=== PATIENT | female | born 1945 | race Caucasian/White ===

== ENCOUNTER 2016-09-03 19:47 | Observation (INO) | payer OTHER, BC ==
[~2016-09-03] VITALS: Ht 165.1 cm; Wt 72.0 kg
[2016-09-03 21:09] LABS: HEMATOCRIT 38.4 % (36.0-46.0); MCH 30.6 PG (29.0-34.0); MCHC 32.8 G/DL (30.0-36.0); MCV 93.2 FL (83-99); MEAN PLAT.VOLUME 10.3 uM^3 (9.5-12.4); PLATELET COUNT 272 K/uL (156-360); RBC DIS.WIDTH-CV 14.4 % (11.8-14.6); RBC DIS.WIDTH-SD 47.1 % (39-53); RED BLOOD COUNT 4.12 M/uL (3.80-5.20); WHITE BLOOD COUNT 9.5 K/uL (4.1-10.2)
[2016-09-03 21:22] LABS: CHLORIDE 107 mEq/L (99-109); SODIUM 139 mEq/L (136-147)
[2016-09-03 21:25] LABS: ADD MIUA? YES; BILIRUBIN NEGATIVE; BLOOD MODERATE; COLOR YELLOW ((YELLOW)); GLUCOSE (STRIP) NEGATIVE; KETONES NEGATIVE; LEUKOCYTES SMALL; NITRITE NEGATIVE; PROTEIN (STRIP) 30; SPECIFIC GRAVITY 1.021 (1.000-1.030); UROBILINOGEN 0.2 MG/DL (0.2-1.0)
[2016-09-03 21:25] LABS: GLUCOSE 108 mg/dL (70-99)
[2016-09-03 21:26] LABS: ANION GAP 12 MEQ/L (2-14)
[2016-09-03 21:27] LABS: TOTAL BILIRUBIN 0.5 mg/dL (0.0-1.0)
[2016-09-03 21:28] LABS: ALKALINE PHOSPHATASE 77 IU/L (3-129); GFR ESTIMATE (CALCULATED) 40 mL/min/
[2016-09-03 21:29] LABS: UREA NITROGEN (BUN) 29 mg/dL (9-23)
[2016-09-03 21:32] LABS: BACTERIA NONE SEEN /HPF; CALCIUM OXALATE CRYSTALS 4+ /HPF; EPITHELIAL CELLS 1+ /HPF; HYALINE CASTS 0-5 /LPF; MUCUS TRACE /LPF; RED BLOOD CELLS 20-30 /HPF (0-5); UCUL ADDED? NO
[2016-09-03] MEDS ORDERED: CIPRO500 MG PO (22:55)
[2016-09-03] MEDS ORDERED: FOLIC ACID1 MG PO (23:40)
[2016-09-03] MEDS ORDERED: ATENOLOL25 MG PO (23:40)
[2016-09-03] MEDS ORDERED: PRAVASTATIN SOD40 MG PO (23:41)
[2016-09-03] MEDS ORDERED: LOSARTAN POTASS25 MG PO (23:41)
[2016-09-03] MEDS ORDERED: ALENDRONATE SOD70 MG PO (23:41)
[2016-09-03] MEDS ORDERED: CYANOCOBALAM1000 MCG PO (23:41)
[2016-09-03] MEDS ORDERED: CITRACAL W/V1 TABLE1 PO (23:42)
[2016-09-03] MEDS ORDERED: ONE DAILY WOME1 EAC1 PO (23:42)
[2016-09-04 01:30] VITALS: BP 115/61
[2016-09-04 04:45] VITALS: BP 96/51
[2016-09-04 07:38] VITALS: BP 114/59
[2016-09-04 09:05] LABS: ANION GAP 7 MEQ/L (2-14); CHLORIDE 108 MEQ/L (99-109); GFR ESTIMATE (CALCULATED) 52 mL/min/; GLUCOSE 93 mg/dL (70-99); POTASSIUM 4.7 MEQ/L (3.7-5.4); SAMPLE HEMOLYSIS CHECK 0; SAMPLE ICTERIC CHECK 0; SAMPLE LIPEMIA CHECK 0; SODIUM 138 MEQ/L (136-147); UREA NITROGEN (BUN) 26 mg/dL (9-23)
== END 2016-09-04 15:11 | disposition home or self-care (01) ==
LOC: EME 19:47 → EDOF 09-04 00:08 → 5WEST 09-04 01:00
PROVIDERS: Physician Assistant Medical
DX: R10.32 Left lower quadrant pain (principal); R11.0 Nausea; I95.9 Hypotension, unspecified; N17.9 Acute kidney failure, unspecified; R82.99 Other abnormal findings in urine; F17.200 Nicotine dependence, unspecified, uncomplicated; Z85.828 Personal history of other malignant neoplasm of skin; Z88.0 Allergy status to penicillin; Z88.8 Allergy status to other drugs, medicaments and biological substances; Z82.49 Family history of ischemic heart disease and other diseases of the circulatory system; Z81.1 Family history of alcohol abuse and dependence
CPT/HCPCS: 74176; 80048; 80053; 81003; 83605; 85027; 87040; 99281; 99285; G0378; J0696; J1644; J7030; J7050

== ENCOUNTER 2017-07-29 08:55 | Emergency (ER) | payer OTHER, BC ==
[~2017-07-29] VITALS: Ht 152.4 cm; Wt 69.5 kg
[~2017-07-29 08:55] MED LIST: ALENDRONATE SOD70 MG PO; ATENOLOL25 MG PO; CIPRO500 MG PO; CITRACAL W/V1 TABLE1 PO; CYANOCOBALAM1000 MCG PO; FOLIC ACID1 MG PO; LOSARTAN POTASS25 MG PO; ONE DAILY WOME1 EAC1 PO; PRAVASTATIN SOD40 MG PO
[2017-07-29 10:32] LABS: APPEARANCE SL.HAZY ((CLEAR)); BILIRUBIN NEGATIVE; BLOOD SMALL; COLOR AMBER ((YELLOW)); GLUCOSE (STRIP) NEGATIVE; KETONES 20; LEUKOCYTES NEGATIVE; NITRITE NEGATIVE; PROTEIN (STRIP) 100; SPECIFIC GRAVITY 1.028 (1.000-1.030)
[2017-07-29 10:50] LABS: BACTERIA RARE /HPF; EPITHELIAL CELLS 2+ /HPF; MUCUS 2+ /LPF; RED BLOOD CELLS 0-5 /HPF (0-5); WHITE BLOOD CELLS 0-5 /HPF (0-5)
[2017-07-29 11:01] LABS: BASOPHIL (%) 0.2 % (0-1); EOSINOPHIL (%) 0 % (0-5); HEMATOCRIT 40.1 % (36.0-46.0); HEMOGLOBIN 13.5 G/DL (11.9-15.5); IMMATURE GRANULOCYTE (%) 0.2 % (0.0-0.7); LYMPHOCYTE (%) 16.1 % (15-42); LYMPHOCYTE COUNT 0.8 K/uL (1.0-2.8); MCH 30.9 PG (29.0-34.0); MCHC 33.7 G/DL (30.0-36.0); MCV 91.8 FL (83-99); MONOCYTE (%) 8.5 % (3-12); MONOCYTE COUNT 0.4 K/uL (0-0.8); NEUTROPHIL COUNT 3.8 K/uL (1.8-6.4); PLATELET COUNT 194 K/uL (156-360); RBC DIS.WIDTH-CV 14.5 % (11.8-14.6); RBC DIS.WIDTH-SD 49.1 % (39-53); RED BLOOD COUNT 4.37 M/uL (3.80-5.20); WHITE BLOOD COUNT 5.1 K/uL (4.1-10.2)
[2017-07-29 11:13] LABS: ALBUMIN 4.4 g/dL (3.2-4.8); CHLORIDE 103 mEq/L (99-109); POTASSIUM 3.9 mEq/L (3.7-5.4); SODIUM 137 mEq/L (136-147)
[2017-07-29 11:16] LABS: GLUCOSE 109 mg/dL (70-99); TOTAL PROTEIN 7.9 g/dL (6.4-8.3)
[2017-07-29 11:18] LABS: TOTAL BILIRUBIN 0.6 mg/dL (0.0-1.0)
[2017-07-29 11:19] LABS: ALKALINE PHOSPHATASE 55 IU/L (3-129); CREATININE 0.9 mg/dL (0.6-1.3); GFR ESTIMATE (CALCULATED) > 59 mL/min/
[2017-07-29 11:20] LABS: UREA NITROGEN (BUN) 23 mg/dL (9-23)
[2017-07-29 11:21] LABS: AST (GOT) 35 IU/L (2-34)
[2017-07-29 11:22] LABS: ALT (GPT) 38 IU/L (3-49)
[2017-07-29] MEDS ORDERED: ZOFRAN ODT4 MG PO (14:00)
[2017-07-29 15:02] VITALS: BP 106/55
== END 2017-07-29 15:03 | disposition home or self-care (01) ==
LOC: EME 08:55
PROVIDERS: Physician Assistant
DX: J10.1 Influenza due to other identified influenza virus with other respiratory manifestations (principal); J44.9 Chronic obstructive pulmonary disease, unspecified; F17.200 Nicotine dependence, unspecified, uncomplicated; I10 Essential (primary) hypertension; Z85.828 Personal history of other malignant neoplasm of skin; Z88.0 Allergy status to penicillin
CPT/HCPCS: 71046; 80053; 81003; 85025; 87502; 93005; 94640; 99281; 99284; J1885; J2405; J7030